=== PATIENT | male | born 1975 ===

== ENCOUNTER 2018-10-02 10:14 | Emergency (ER) | payer OTHER ==
[2018-10-02 10:26] VITALS: BP 132/80; PULSE 70; RESP 18; TEMP 97.5; O2SAT 99
--- NOTE | 2018-10-02 11:06 | C.PDOC ---
History Of Present Illness 43 y/o male presents to the ED complaining of pain and swelling to the right posterior scalp for the past 2 weeks. States he has hx of head injury 8 years ago, after hitting his head on a closet. Patient reports imaging was done, showing herniated disc in the cervical spine, and swelling to the back of his head. He completed physical therapy 8 years ago, with improvement. Now patient reports increasing frequency of exercise, and he noticed the swelling has recurred along with pain in the neck. Pain is rated a 3 /10 and worse while working out. He took Tylenol yesterday with temporary relief. Otherwise patient denies any recent illness or trauma, visual complaints, paresthesias, fever, chills, nausea, vomiting, or dizziness. Time Seen by Provider: 10/02/18 11:03 Chief Complaint (Nursing): Headache History Per: Patient History/Exam Limitations: no limitations Onset/Duration Of Symptoms: Days Current Symptoms Are (Timing): Still Present Past Medical History Reviewed: Historical Data, Nursing Documentation, Vital Signs Vital Signs: Last Vital Signs Temp 97.5 F L 10/02/18 10:22 Pulse 70 10/02/18 10:22 Resp 18 10/02/18 10:22 BP 132/80 10/02/18 10:22 Pulse Ox 99 10/02/18 10:22 - Medical History PMH: Back Problems (Herniated disc in c-spine) Family History: States: Unknown Family Hx - Social History Hx Alcohol Use: No Hx Substance Use: No - Immunization History Hx Tetanus Toxoid Vaccination: No Hx Influenza Vaccination: No Hx Pneumococcal Vaccination: No Review Of Systems Constitutional: Negative for: Fever, Chills Eyes: Negative for: Vision Change Cardiovascular: Negative for: Chest Pain, Palpitations Respiratory: Negative for: Shortness of Breath Gastrointestinal: Negative for: Nausea, Vomiting Musculoskeletal: Positive for: Neck Pain (with swelling to posterior neck/scalp) Skin: Negative for: Rash Neurological: Negative for: Weakness, Numbness, Dizziness Physical Exam - Physical Exam Appears: Non-toxic, No Acute Distress Skin: Normal Color, Warm, Dry Head: Atraumatic, Normacephalic, Tenderness (Slight tenderness to palpation over right occipital region; No erythema or gross edema) Eye(s): bilateral: Normal Inspection, PERRL, EOMI Oral Mucosa: Moist Neck: Normal ROM, Trachea Midline, No Midline Cervical Tenderness, Supple Lymphatic: No Adenopathy Chest: Symmetrical Respiratory: No Accessory Muscle Use, Other (No respiratory distress) Extremity: Normal ROM, Capillary Refill (< 2 sec), No Deformity, No Swelling Pulses: Left Dorsalis Pedis: Normal, Right Dorsalis Pedis: Normal Neurological/Psych: Oriented x3, Normal Speech, Normal Cranial Nerves, Other (No focal deficits) Gait: Steady ED Course And Treatment O2 Sat by Pulse Oximetry: 99 (RA) Pulse Ox Interpretation: Normal Medical Decision Making Medical Decision Making: Impression: Neck Pain Plan: - 600 mg PO motrin for pain - reassessed- pain improved patient was advised to follow up with Dr. Montano or with an editorial specialist in reference to your herniated disc; MRI may be warranted Ice/ warm compresses to back of head Continue Motrin as needed for pain Patient verbalized understanding and is in agreement with plan Patient is stable for discharge Disposition Counseled Patient/Family Regarding: Diagnosis, Need For Followup, Rx Given - Disposition Referrals: Doris Montano DO [Non-Staff] - [facility] at [facility] [Outside] [facility] at [Outside] Disposition: HOME/ ROUTINE Disposition Time: 11:56 Condition: STABLE Additional Instructions: Follow up with Dr. Montano or with an editorial specialist in reference to your herniated disc You may need repeat imaging with MRI and to restart physical therapy Ice/ warm compresses to back of head Continue Motrin as needed for pain Return to ED if symptoms worsen Prescriptions: Ibuprofen [Motrin] 600 mg PO Q8 PRN #30 tab PRN Reason: Pain, Moderate (4-7) Instructions: Chronic Neck Pain (DC), Intervertebral Discectomy (DC) Forms: [employer] (Lux[place]ish) - Clinical Impression Clinical Impression: Herniated cervical disc, Neck pain - PA / [employer] / Resident Statement / has reviewed & agrees with the documentation as recorded. - Scribe Statement The provider has reviewed the documentation as recorded by the Rachelibeilas Upton All medical record entries made by the Scribe were at my direction and personally dictated by me. I have reviewed the chart and agree that the record accurately reflects my personal performance of the history, physical exam, medical decision making, and the department course for this patient. I have also personally directed, reviewed, and agree with the discharge instructions and disposition.
== END 2018-10-02 12:04 | disposition home or self-care (01) ==
LOC: C.ER 10:14
DX: M50.20 Other cervical disc displacement, unspecified cervical region (principal)